=== PATIENT | female | born 1985 | race Caucasian/White ===

== ENCOUNTER → 2024-02-25 11:23 | Outpatient (REF) | payer OTHER, SELFPAY | LOC: HWRAD 11:23 | PROVIDERS: ATTENDING PHYSICIAN Family Medicine | DX: R10.11 Right upper quadrant pain (principal) | CPT/HCPCS: 76770 ==

== ENCOUNTER → 2024-02-27 09:24 | Outpatient (REF) | payer OTHER, SELFPAY | LOC: HWRAD 09:24 | PROVIDERS: ATTENDING PHYSICIAN Family Medicine | DX: R10.11 Right upper quadrant pain (principal) | CPT/HCPCS: 74176 ==

== ENCOUNTER 2024-04-12 00:08 | Emergency (ER) | payer OTHER, SELFPAY ==
[2024-04-12 00:09] VITALS: BP 120/70
[2024-04-12 01:30] LABS: Hematocrit 41.6 % (37.0-47.0); Mean Corp Hgb Conc. 33.7 g/dL (33.0-37.0); Mean Corpuscular Hgb 28.9 pg (27.0-31.0); Mean Corpuscular Volume 85.8 fL (81.0-99.0); Mean Platelet Volume 10.6 fL (7.4-10.4); Platelet Count 265 10^3/uL (130-400); Red Blood Cell Count 4.85 10^6/uL (4.20-5.40); Red Cell Dist. Width 11.7 % (11.5-14.5); White Blood Cell Count 14.2 10^3/uL (4.8-10.8)
[2024-04-12 02:57] VITALS: BMI 33.2
[2024-04-12 03:50] LABS: Absolute Neutrophils -Man Diff 7.9 10^3/uL (1.4-6.5); Atypical Lymphocytes 5 %; Band Neutrophils 3 % (0-3); Eosinophils 1 % (0-6); Lymphocytes 33 % (20-51); Monocytes 5 % (2-9); Normal RBC Morphology Yes; Platelets Checked Yes; Segmented Neutrophils 53 % (42-75); Total Cells Counted 100
--- NOTE | 2024-04-12 04:29 | ED.GENMED ---
History of Present Illness
General
Chief Complaint: Vaginal Bleeding
Time Seen by Provider: 04/12/24 04:29
History of Present Illness
History of Present Illness:
This a pleasant 38-year-old female presents to the emergency department with scant spotting. She found out she was last week. Her last menstrual period was beginning of February. She states that this evening she had pink discharge per
vagina. She states that it has diminished. She denies any abdominal pain. She does not have movement. This is her first .
Phy Exam
Physical Exam
Physical Exam:
Physical Exam
Vital signs and allergy list reviewed and agreed with.
GENERAL: Alert , in minimal to no apparent distress
EYE: pupils equal, EOMI, anicteric
NECK: Supple, no significant adenopathy. No masses. Trachea midline
ENT: Oropharynx is clear, mmm.
CARDIAC: Regular rate and rhythm . No M/R/G
LUNGS: Clear breath sounds bilaterally, no acute respiratory distress, no wheezes/rales/rhonchi
ABDOMEN: Soft, without focal tenderness, no r/g, no cvat. Normal BSx4q, nongravid appearing
NEUROLOGICAL: Alert and oriented, no focal neuro deficits
SKIN: Warm and dry, skin intact.
MUSCULOSKELETAL: No edema, well perfused. Moves all 4 extremities
PSYCH: Normal and appropriate interaction.
Course
Orders/Labs/Results
Orders:
Orders
04/12/24 00:21
Type+Screen Urgent
Beta HCG Quantitative Urgent
Is this a screen?: No
Comment: known
Complete Blood Count/With Diff Urgent
Manual Differential Urgent
04/12/24 01:16
US 1st Trimester Urgent
Comment:
Reason For Exam: 1st trimester bleeding
04/12/24 02:19
ABO2 Urgent
BBK Wristband Number:
Associate notified that ABO2 has been ordered: [id number]
Date: 04/12/24
Time: 00:39
Flight Crew Time Clerk ID: [id number]
Abnormal Lab Results
04/12/24
00:21
WBC 14.2 H 10^3/uL
(4.8-10.8)
MPV 10.6 H fL
(7.4-10.4)
Abs Neuts (Manual) 7.9 H 10^3/uL
(1.4-6.5)
04/12/24 00:21
Vital Signs
Initial and Last Documented VS:
Initial Vital Signs
Temp Pulse Resp BP Pulse Ox
98.3 F 83 16 120/70 98
04/12/24 00:09 04/12/24 00:09 04/12/24 00:09 04/12/24 00:09 04/12/24 00:09
Last Documented Vital Signs
Temp Pulse Resp BP Pulse Ox
98.3 F 73 18 106/64 99
04/12/24 00:09 04/12/24 04:32 04/12/24 04:32 04/12/24 04:32 04/12/24 04:32
*Critical Care Note
Total Time (30-74mins, 75-104mins- exclusive of procedures): Not Applicable
Update Note
Update Note:
Ultrasound pelvis
IMPRESSION:
Single intrauterine dating 6 weeks and 0 day. CRL measures 0.31 cm with detected heart flicker, however no definitive heart rate can be obtained, likely too small.
No subchorionic hemorrhage.
Mildly enlarged left ovary, volume 32 mL, containing simple appearing 3.9 x 2.7 x 3.4 cm cyst. Nonenlarged right ovary with few follicles. Normal ovarian vascular flow bilaterally.
Small amount of free fluid in the right adnexa and posterior pelvis.
Spoke with Charlotte Arellano,, DESIZING MACHINE OPERATOR. She does not recommend RhoGAM under 10 weeks. Her group will see the patient in the office at her previously scheduled appointment. Patient will have quant rechecked.
ED Attending Note
-
Portions of this chart may have been created with voice recognition software.� Occasional wrong word or��sound alike� substitutions may have occurred due to the inherent limitations of voice recognition software.
Discharge Plan
Departure
Patient Disposition: Home (Routine Discharge)
Date of Disposition: 04/12/24
Time of Disposition: 04:53
Patient with high blood pressure during this ER visit?: Yes
Condition: Good
Discharge Problem:
Miscarriage, threatened, early
Instructions: Threatened Miscarriage (DC)
Referrals:
Charlotte Arellano DO [Active] - Keep scheduled appt
Keyur Wyatt, [Family Provider] -
Activity Restrictions/Additional Instructions:
No RhoGAM necessary today.
Please follow-up with Dr. Arellano or one of her partners at your previously scheduled appointment this week
I have provided a prescription for a beta hCG quantitative lab study. Please try to get it completed before your follow-up appointment
It was a pleasure meeting you and taking part in your care. We hope for your continued healing and wellness.
Please read discharge instructions in their entirety. However, they are for general education and may not describe your exact diagnosis at discharge. Information on your ER visit and medical conditions were discussed with you along with appropriate
follow up information...
If indicated, please take your medications as instructed and indicated on discharge paperwork.
Please schedule a follow up appointment as directed. Call to schedule an appointment
Please return to the emergency department with ANY change in, persisting, or worsening of symptoms. If any of your symptoms do not improve, or persist, or become more severe within 6-12 hours, please return to the emergency department for further
care.
Please return to the emergency department if you develop a headache, neck pain/stiffness, fever greater than 100.4F, chest pain, shortness of breath, persistent nausea, vomiting, slurred speech, difficulty walking, numbness/tingling, weakness, signs
of infection or any other symptoms that are worrisome to you.
If you have any questions or concerns please do not hesitate to call the Hospital at or E-mail me directly at [email or web address]
Interventions
Interventions:
*Risk Screen - Suicide Last Done: 04/12/24 00:09
*General Assessment Last Done: 04/12/24 00:09
*Neglect/Abuse Screening Last Done: 04/12/24 00:09
*ED COVID-19 Vaccine History Last Done: 04/12/24 02:57
*Nursing Disposition Last Done: 04/12/24 04:59
ED-Female Genitourinary Assessment Last Done: 04/12/24 02:57
Discharge Date and Time
Discharge Date/Time: 04/12/24 04:59
Print Language: GEORGIAN
[2024-04-12 04:32] VITALS: BP 106/64
== END 2024-04-12 04:59 | disposition home or self-care (01) ==
LOC: EMR 00:08
PROVIDERS: EMERGENCY PHYSICIAN Student in an Organized Health Care Education/Training Program; FAMILY PHYSICIAN Family Medicine
DX: O20.0 Threatened abortion (principal); Z3A.01 Less than 8 weeks gestation of pregnancy
CPT/HCPCS: 99284; 76801; 84702; 85025; 86850; 86900; 86901

== ENCOUNTER → 2024-05-13 13:49 | Outpatient (REF) | payer OTHER, SELFPAY ==
--- NOTE | 2024-05-13 13:58 | PN.DIAED06 ---
Meal Plan - Gestational
- Breakfast
Gestational Diabetes Meal Plan Name: 1800 calories
Breakfast - Total Carbohydrate (grams): 30
Breakfast - Starch Carbohydrate: 1
Breakfast - Fruit Carbohydrate: 0
Breakfast - Milk Carbohydrate: 1
Breakfast - Nonstarchy Vegetables: Yes
Breakfast - Meat/Protein: 1
Breakfast - Fat: 2
- Morning Snack
Morning Snack - Total Carbohydrate (grams): 30
Morning Snack - Starch Carbohydrate: 1
Morning Snack - Fruit Carbohydrate: 0
Morning Snack - Milk Carbohydrate: 1
Morning Snack - Nonstarchy Vegetables: Yes
Morning Snack - Meat/Protein: 0.5
Morning Snack - Fat: 0
- Lunch
Lunch - Total Carbohydrate (grams): 45
Lunch - Starch Carbohydrate: 2
Lunch - Fruit Carbohydrate: 1
Lunch - Milk Carbohydrate: 0
Lunch - Nonstarchy Vegetables: Yes
Lunch - Meat/Protein: 2
Lunch - Fat: 1
- Afternoon Snack
Afternoon Snack - Total Carbohydrate (grams): 30
Afternoon Snack - Starch Carbohydrate: 1
Afternoon Snack - Fruit Carbohydrate: 1
Afternoon Snack - Milk Carbohydrate: 0
Afternoon Snack - Nonstarchy Vegetables: Yes
Afternoon Snack - Meat/Protein: 1
Afternoon Snack - Fat: 0
- Dinner
Dinner - Total Carbohydrate (grams): 45
Dinner - Starch Carbohydrate: 2
Dinner - Fruit Carbohydrate: 0
Dinner - Milk Carbohydrate: 1
Dinner - Nonstarchy Vegetables: Yes
Dinner - Meat/Protein: 2
Dinner - Fat: 2
- Evening Snack
Evening Snack - Total Carbohydrate (grams): 30
Evening Snack - Starch Carbohydrate: 1
Evening Snack - Fruit Carbohydrate: 0
Evening Snack - Milk Carbohydrate: 1
Evening Snack - Nonstarchy Vegetables: Yes
Evening Snack - Meat/Protein: 1
Evening Snack - Fat: 1
--- NOTE | 2024-05-14 08:08 | PN.DE ---
Diabetes Education
- -
05/14/2024: Gestational Diabetes Consult
Met with Ms. Britton yesterday (05/13/24),for medical nutrition therapy. Pt is currently at 10 weeks of gestation. Angle has a h/o PCOS and T2DM, She was taking Metformin but it was discontinued due to GI SE and was switched to Mounjaro, which has
also been discontinued since finding out that she is .
Explained glucose metabolism in body and what occurs during to cause increase blood sugar. Discussed importance of keeping BS well controlled to avoid complications to the baby during and after (macrosomia, hypoglycemia).
Angle reports that she has a glucose monitor at home- [employer] and has been testing her blood sugars, fasting and 2 hrs after each meal for 2 weeks now.
She is aware to test FBS and 2 hr pp each meal. Expected results for FBS <95 mg/dl and 2 hr pp <120 mg/dl. A Log sheet was provided for her to record results, she will send a 4-day meal log with all her FBG and 2hr Post prandial glucose numbers to
this office for review. In addition, she will send all her glucose readings to Niru at [facility] every Saturday.
Discussed macronutrients, provided with 1800 shakira GDM meal plan, reviewed and educated her on the food label . 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 States she had lost ~60lbs while taking Mounjaro but she has noticed
that she is starting to gain weight. Discussed physical activity, however, she is currently not exercising due to a busy work schedule. Discussed and emphasized the importance of staying active during and after her . She was encouraged to
reach out should she require insulin.
== END ==
LOC: DES 13:49
PROVIDERS: ATTENDING PHYSICIAN Student in an Organized Health Care Education/Training Program
DX: O24.419 Gestational diabetes mellitus in pregnancy, unspecified control (principal)
CPT/HCPCS: 99078

== ENCOUNTER → 2024-09-16 13:23 | Outpatient (REF) | payer OTHER, SELFPAY | LOC: PNTC 13:23 | PROVIDERS: ATTENDING PHYSICIAN Obstetrics & Gynecology | DX: Z34.90 Encounter for supervision of normal pregnancy, unspecified, unspecified trimester (principal) | CPT/HCPCS: 36415; 86850; 86900; 86901; 96372; J2790 ==

== ENCOUNTER → 2024-10-19 10:54 | Outpatient (REF) | payer OTHER, SELFPAY | LOC: PNTC 10:54 | PROVIDERS: ATTENDING PHYSICIAN Obstetrics & Gynecology | DX: O09.529 Supervision of elderly multigravida, unspecified trimester (principal) | CPT/HCPCS: 59025 ==

== ENCOUNTER → 2024-10-29 08:57 | Outpatient (REF) | payer OTHER, SELFPAY | LOC: PNTC 08:57 | PROVIDERS: ATTENDING PHYSICIAN Obstetrics & Gynecology | DX: O09.529 Supervision of elderly multigravida, unspecified trimester (principal) | CPT/HCPCS: 59025 ==

== ENCOUNTER → 2024-11-02 10:31 | Outpatient (REF) | payer OTHER, SELFPAY | LOC: PNTC 10:31 | PROVIDERS: ATTENDING PHYSICIAN Obstetrics & Gynecology | DX: O09.93 Supervision of high risk pregnancy, unspecified, third trimester (principal); E28.2 Polycystic ovarian syndrome | CPT/HCPCS: 59025 ==

== ENCOUNTER → 2024-11-05 15:23 | Outpatient (REF) | payer OTHER, SELFPAY | LOC: PNTC 15:23 | PROVIDERS: ATTENDING PHYSICIAN Student in an Organized Health Care Education/Training Program | DX: O09.529 Supervision of elderly multigravida, unspecified trimester (principal) | CPT/HCPCS: 59025 ==

== ENCOUNTER → 2024-11-09 09:30 | Outpatient (REF) | payer OTHER, SELFPAY | LOC: PNTC 09:30 | PROVIDERS: ATTENDING PHYSICIAN Obstetrics & Gynecology | DX: O09.529 Supervision of elderly multigravida, unspecified trimester (principal); E28.2 Polycystic ovarian syndrome | CPT/HCPCS: 59025 ==

== ENCOUNTER → 2024-11-12 14:59 | Outpatient (REF) | payer OTHER, SELFPAY | LOC: PNTC 14:59 | PROVIDERS: ATTENDING PHYSICIAN Obstetrics & Gynecology | DX: O09.529 Supervision of elderly multigravida, unspecified trimester (principal) | CPT/HCPCS: 59025 ==

== ENCOUNTER → 2024-11-16 09:35 | Outpatient (REF) | payer OTHER, SELFPAY | LOC: PNTC 09:35 | PROVIDERS: ATTENDING PHYSICIAN Obstetrics & Gynecology | DX: O09.529 Supervision of elderly multigravida, unspecified trimester (principal) | CPT/HCPCS: 59025 ==

== ENCOUNTER → 2024-11-19 11:57 | Outpatient (REF) | payer OTHER, SELFPAY | LOC: PNTC 11:57 | PROVIDERS: ATTENDING PHYSICIAN Student in an Organized Health Care Education/Training Program | DX: O09.529 Supervision of elderly multigravida, unspecified trimester (principal); O34.80 Maternal care for other abnormalities of pelvic organs, unspecified trimester | CPT/HCPCS: 59025 ==

== ENCOUNTER → 2024-11-23 09:31 | Outpatient (REF) | payer OTHER, SELFPAY | LOC: PNTC 09:31 | PROVIDERS: ATTENDING PHYSICIAN Student in an Organized Health Care Education/Training Program | DX: O09.529 Supervision of elderly multigravida, unspecified trimester (principal) | CPT/HCPCS: 59025 ==

== ENCOUNTER → 2024-11-26 14:20 | Outpatient (REF) | payer OTHER, SELFPAY | LOC: PNTC 14:20 | PROVIDERS: ATTENDING PHYSICIAN Obstetrics & Gynecology | DX: O09.529 Supervision of elderly multigravida, unspecified trimester (principal) | CPT/HCPCS: 59025 ==

== ENCOUNTER → 2024-11-30 09:33 | Outpatient (REF) | payer OTHER, SELFPAY | LOC: PNTC 09:33 | PROVIDERS: ATTENDING PHYSICIAN Student in an Organized Health Care Education/Training Program | DX: O09.529 Supervision of elderly multigravida, unspecified trimester (principal); E28.2 Polycystic ovarian syndrome | CPT/HCPCS: 59025 ==

== ENCOUNTER 2024-11-30 19:36 | Inpatient (IN) | payer OTHER, SELFPAY ==
[2024-11-30 20:53] VITALS: BMI 40.4
[2024-11-30 21:12] VITALS: BP 145/82
[2024-11-30 21:25] LABS: Hematocrit 35.1 % (37.0-47.0); Hemoglobin 11.8 g/dL (12.0-16.0); Mean Corp Hgb Conc. 33.6 g/dL (33.0-37.0); Mean Corpuscular Volume 84.6 fL (81.0-99.0); Nucleated Red Blood Cells % 0 %; Platelet Count 231 10^3/uL (130-400); Red Cell Dist. Width 13.6 % (11.5-14.5)
[2024-11-30] MEDS: CYTOTEC 25 MICROGRAM VAG (21:25)
[2024-11-30 21:30] LABS: ALT (SGPT) 20 U/L (0-35); AST (SGOT) 25 U/L (14-36); Albumin 3.3 g/dl (3.5-5.0); Alkaline Phosphatase 124 U/L (38-126); Blood Urea Nitrogen 10 mg/dl (7-17); Calcium 9.4 mg/dl (8.4-10.2); Carbon Dioxide 20 mmol/L (22-30); Chloride 109 mmol/L (98-107); Estimated Creatinine Clearance > 125 ml/min; Glucose 107 mg/dl (70-99); Potassium 3.6 mmol/L (3.5-5.1); Sodium 134 mmol/L (135-145); Total Protein 6.4 g/dl (6.3-8.2); eGFR > 60.00
[2024-11-30] MEDS: LR 1000 IV (22:48)
[2024-11-30] MEDS: MAGNESIUM SULFATE 100 IV (22:48)
[2024-11-30] MEDS: LANTUS 0.7 UNITS SC (22:54)
[2024-11-30] MEDS: MAGNESIUM SULFATE 40 GRAM 1000 IV (23:08)
[2024-12-01 01:08] LABS: Glucose - Point of Care 56 mg/dl (70-99)
[2024-12-01 01:11] LABS: Glucose - Point of Care 58 mg/dl (70-99)
[2024-12-01 01:39] LABS: Glucose - Point of Care 64 mg/dl (70-99)
[2024-12-01] MEDS: PITOCIN 30 UNITS/NSS 500 ML IV (01:57)
[2024-12-01 02:03] LABS: Glucose - Point of Care 68 mg/dl (70-99)
[2024-12-01 04:07] LABS: Glucose - Point of Care 72 mg/dl (70-99)
[2024-12-01 06:12] LABS: Glucose - Point of Care 77 mg/dl (70-99)
[2024-12-01 08:09] LABS: Glucose - Point of Care 76 mg/dl (70-99)
[2024-12-01] MEDS: TRANDATE 200 MG PO (09:43)
[2024-12-01] MEDS: TRANDATE 20 MG IV (09:44)
[2024-12-01 10:10] LABS: Glucose - Point of Care 86 mg/dl (70-99)
--- NOTE | 2024-12-01 11:17 | PN.DE.MGMTRT ---
Insulin Management
- -
12/01/2024 Diabetes Management Consult
Patient admitted 11/30 evening for induction. PMH PCOS @ age 21, . Prior to admission was taking lantus 140 units @ HS and novolog 20 units with breakfast, 38 units with lunch and 60 units with dinner. cr .6, eGFR > 60.
Patient is awake and alert, able to discuss diabetes care. at bedside very supportive. Patient states she was taking Mounjaro for the past 4 years sees her primary doctor, Dr. Keyur Woodard for whom she also works. States her A1C always
runs around 6%. She had been told she 'could not get , but did. At that time the Mounjaro was stopped. She quickly required insulin and doses have been increased based on glucose results. Prior to coming to hospital last evening she had
a full dinner and took 60 units of novolog. She received 70 units of lantus at HS. Glucose at 1:06 was 56, she was treated and glucose eventually was up to 72 at 4:05am.
Patient currently ordered clear liquids, being induced, in early labor, has not required any insulin. Dr. Rosales has ordered insulin infusion to start if glucose is 121 or greater. Will HOLD all subcutaneous insulin.
Discussed with nurse.
Will follow.
Diabetes History
- -
Type of Diabetes: 2
Pre-Admission Diabetes Regimen
11/30/24
21:07
Creatinine 0.6
Insulin Pump Settings
IP Diabetes Regimen
11/30/24 12/01/24 12/01/24
21:07 01:06 01:09
Glucose 107 H
POC Glucose 56 L 58 L
12/01/24 12/01/24 12/01/24
01:37 02:02 04:05
Glucose
POC Glucose 64 L 68 L 72
12/01/24 12/01/24 12/01/24
06:10 08:07 10:09
Glucose
POC Glucose 77 76 86
Patient Education
[2024-12-01 12:01] LABS: Glucose - Point of Care 78 mg/dl (70-99)
[2024-12-01 14:02] LABS: Glucose - Point of Care 73 mg/dl (70-99)
[2024-12-01 16:08] LABS: Glucose - Point of Care 72 mg/dl (70-99)
[2024-12-01 18:07] LABS: Glucose - Point of Care 83 mg/dl (70-99)
[2024-12-01] MEDS: MAGNESIUM SULFATE 40 GRAM 1000 IV (18:42)
[2024-12-01] MEDS: FENTANYL/BUPIVACAINE 100 EPIDURAL (19:42)
[2024-12-01] MEDS: SUBLIMAZE 100 MCG EPIDURAL (19:42)
[2024-12-01] MEDS: TRANDATE PO (20:00)
[2024-12-01 20:13] LABS: Glucose - Point of Care 103 mg/dl (70-99)
[2024-12-01 22:20] LABS: Glucose - Point of Care 101 mg/dl (70-99)
[2024-12-02] MEDS: TYLENOL 975 MG PO (00:09)
[2024-12-02] MEDS: BICITRA 30 ML PO (00:10)
[2024-12-02] MEDS: ANCEF 15 MG IV (00:19)
[2024-12-02] MEDS: ZITHROMAX INFUSION 250 IV (00:34)
[2024-12-02] MEDS: TRANEXAMIC ACID 100 IV (00:37)
[2024-12-02] MEDS: LR 1000 IV (02:05)
[2024-12-02] MEDS: PITOCIN 30 UNITS/NSS 500 ML IV (02:05)
[2024-12-02 02:34] LABS: Glucose - Point of Care 170 mg/dl (70-99)
[2024-12-02] MEDS: NOVOLOG FLEXPEN-HIGH RESISTANCE 2 UNITS SC ×2 (03:40→08:06)
[2024-12-02 03:46] LABS: Glucose - Point of Care 179 mg/dl (70-99)
[2024-12-02] MEDS: TORADOL 15 MG IV ×4 (04:03→22:08)
[2024-12-02] MEDS: TRANDATE 200 MG PO ×2 (07:55→20:02)
[2024-12-02] MEDS: PRENATAL PLUS 1 TABLET PO (07:55)
[2024-12-02] MEDS: COLACE 100 MG PO ×2 (07:56→20:02)
[2024-12-02 08:05] LABS: Glucose - Point of Care 180 mg/dl (70-99)
[2024-12-02 11:53] LABS: Glucose - Point of Care 179 mg/dl (70-99)
[2024-12-02] MEDS: NOVOLOG FLEXPEN 3 UNITS SC (12:15)
[2024-12-02] MEDS: NOVOLOG FLEXPEN-MODERATE RESISTANCE SC (12:39)
--- NOTE | 2024-12-02 12:53 | PN.DE.MGMTRT ---
Insulin Management
- -
12/02/2024 Diabetes Management Consult Follow up
Patient admitted 11/30 evening for induction. PMH PCOS @ age 21, . Prior to admission was taking lantus 140 units @ HS and novolog 20 units with breakfast, 38 units with lunch and 60 units with dinner. cr .6, eGFR > 60.
Patient is awake and alert, able to discuss diabetes care. at bedside very supportive.
POD 1 s/p - male, mother and baby doing well.
Diet has been advanced. Fasting glucose this AM 180, received 2 units corrective insulin. Pre lunch glucose 179. Will start ac novolog 3 units and reduce corrective from high to moderate. Will consider low dose lantus at HS if fasting glucose
continues elevated in AM. Discussed with patient the possible need for insulin temporarily, she is in agreement. Her plan is to bottle feed and resume Mounjaro as soon as she follows up with primary provider (where she works).
Discussed with nurse.
Will follow.
Diabetes History
- -
Type of Diabetes: 2 requiring insulin
Pre-Admission Diabetes Regimen
Insulin Pump Settings
IP Diabetes Regimen
12/01/24 12/01/24 12/01/24
14:01 16:03 18:02
POC Glucose 73 72 83
12/01/24 12/01/24 12/02/24
20:11 22:08 02:33
POC Glucose 103 H 101 H 170 H
12/02/24 12/02/24 12/02/24
03:38 07:58 11:51
POC Glucose 179 H 180 H 179 H
Patient Education
[2024-12-02] MEDS: MAGNESIUM SULFATE 40 GRAM 1000 IV (15:16)
[2024-12-02 16:48] LABS: Glucose - Point of Care 137 mg/dl (70-99)
[2024-12-03 06:49] LABS: Hematocrit 26.3 % (37.0-47.0); Hemoglobin 8.6 g/dL (12.0-16.0); Mean Corp Hgb Conc. 32.7 g/dL (33.0-37.0); Mean Corpuscular Volume 85.4 fL (81.0-99.0); Platelet Count 196 10^3/uL (130-400); Red Cell Dist. Width 14.6 % (11.5-14.5)
--- NOTE | 2024-12-03 07:54 | W.PN.ANS.POP ---
Anesthesia Post Operative
- Anesthesia Post Op Note
Vital Signs Stable-See Nursing Note: Yes
Airway Patent: Yes
Adequate Pain Control: Yes
Change in Mental Status: No
Current Postoperative Nausea & Vomiting: No
Anesthesia Complications: No
General Anesthetic Recall: No
Unplanned Admission: No
Post Op Hydration Adequate: Yes
- -
Pt awake, alertdddd. OOB to chair with no anesthesia related c/o at time of post op visit.
[2024-12-03 07:56] LABS: Glucose - Point of Care 119 mg/dl (70-99)
[2024-12-03] MEDS: NOVOLOG FLEXPEN-MODERATE RESISTANCE SC ×2 (08:25→17:38)
[2024-12-03] MEDS: COLACE 100 MG PO (08:26)
[2024-12-03] MEDS: PRENATAL PLUS 1 TABLET PO (08:26)
[2024-12-03] MEDS: TRANDATE 200 MG PO ×2 (08:26→20:16)
[2024-12-03] MEDS: MOTRIN 600 MG PO ×3 (08:35→23:57)
[2024-12-03] MEDS: TYLENOL 650 MG PO ×3 (08:36→23:57)
[2024-12-03 11:39] LABS: Glucose - Point of Care 211 mg/dl (70-99)
[2024-12-03] MEDS: NOVOLOG FLEXPEN-MODERATE RESISTANCE 3 UNITS SC (11:41)
[2024-12-03 17:13] LABS: Glucose - Point of Care 105 mg/dl (70-99)
[2024-12-03] MEDS: RHOGAM 300 MCG IM (18:13)
[2024-12-03] MEDS: COLACE PO (20:23)
[2024-12-03 20:33] LABS: Glucose - Point of Care 184 mg/dl (70-99)
[2024-12-03 22:04] LABS: Glucose - Point of Care 157 mg/dl (70-99)
[2024-12-03] MEDS: NOVOLOG FLEXPEN 1 UNITS SC (22:06)
[2024-12-04 07:01] LABS: Glucose - Point of Care 96 mg/dl (70-99)
[2024-12-04] MEDS: NOVOLOG FLEXPEN-MODERATE RESISTANCE SC (08:35)
[2024-12-04] MEDS: TRANDATE 200 MG PO (08:36)
[2024-12-04] MEDS: COLACE 100 MG PO (08:36)
[2024-12-04] MEDS: MOTRIN 600 MG PO (08:36)
[2024-12-04] MEDS: PRENATAL PLUS PO (08:37)
--- NOTE | 2024-12-04 09:17 | PN.DE.MGMTRT ---
Insulin Management
- -
12/04/2024 Diabetes Management Follow up
Patient admitted 11/30 evening for induction. PMH PCOS @ age 21, . Prior to admission was taking Lantus 140 units @ HS and NovoLog 20 units with breakfast, 38 units with lunch and 60 units with dinner. cr .6, eGFR > 60.
Patient is awake and alert, able to discuss diabetes care. at bedside very supportive.
POD # 3 s/p - male, mother and baby doing well.
Currently on reg diet. 12/03 Pre-lunch glucose 211, received 3 units corrective insulin. Glucose down to 105 pre-dinner. HS glucose was 157, received 1 unit of corrective insulin. FBG this AM 96. Will make no changes to current regimen.
Will consider adding AC NovoLog and HS Lantus if glucose continues to trend up in AM.
Discussed with patient the possible need for insulin temporarily, she is in agreement. Her plan is to bottle feed and resume Mounjaro as soon as she follows up with primary provider (where she works).
Discussed with nurse. Will cont to follow.
Diabetes History
- -
Type of Diabetes: 2 requiring insulin
Pre-Admission Diabetes Regimen
Insulin Pump Settings
IP Diabetes Regimen
12/03/24 12/03/24 12/03/24
11:35 17:07 20:32
POC Glucose 211 H 105 H 184 H
12/03/24 12/04/24
22:03 07:00
POC Glucose 157 H 96
Patient Education
[2024-12-04 13:41] LABS: Syphilis/T. pallidum Ab Reflex Negative (Negative)
== END 2024-12-04 11:42 | disposition home or self-care (01) | DRG 788 ==
LOC: LDRP 19:36
PROVIDERS: Obstetrics & Gynecology; ADMITTING PHYSICIAN Obstetrics & Gynecology; FAMILY PHYSICIAN Family Medicine
PROC: 3E0P7VZ Introduction of Hormone into Female Reproductive, Via Natural or Artificial Opening (ICD-10-PCS; 2024-11-30)
PROC: 3E033VJ Introduction of Other Hormone into Peripheral Vein, Percutaneous Approach (ICD-10-PCS; 2024-12-01)
PROC: 0U7C7DJ Dilation of Cervix with Intraluminal Device, Temporary, Via Natural or Artificial Opening (ICD-10-PCS; 2024-12-01)
PROC: 10907ZC Drainage of Amniotic Fluid, Therapeutic from Products of Conception, Via Natural or Artificial Opening (ICD-10-PCS; 2024-12-01)
PROC: 10D00Z1 Extraction of Products of Conception, Low, Open Approach (ICD-10-PCS; 2024-12-02)
PROC: 3E0334Z Introduction of Serum, Toxoid and Vaccine into Peripheral Vein, Percutaneous Approach (ICD-10-PCS; 2024-12-03)
DX: O14.14 Severe pre-eclampsia complicating childbirth (principal); O99.214 Obesity complicating childbirth; O76 Abnormality in fetal heart rate and rhythm complicating labor and delivery; O24.12 Pre-existing type 2 diabetes mellitus, in childbirth; Z3A.39 39 weeks gestation of pregnancy; Z37.0 Single live birth; O26.893 Other specified pregnancy related conditions, third trimester; Z67.11 Type A blood, Rh negative
CPT/HCPCS: 80053; 82570; 82962; 84156; 85025; 85027; 85461; 86780; 86850; 86900; 86901; 88307; J2790

== ENCOUNTER → 2024-12-14 12:27 | Outpatient (REF) | payer OTHER, SELFPAY ==
[2024-12-14 13:11] LABS: Hematocrit 37.9 % (37.0-47.0); Hemoglobin 11.8 g/dL (12.0-16.0); Mean Corp Hgb Conc. 31.1 g/dL (33.0-37.0); Mean Corpuscular Volume 86.5 fL (81.0-99.0); Nucleated Red Blood Cells % 0 %; Platelet Count 393 10^3/uL (130-400); Red Cell Dist. Width 13.2 % (11.5-14.5)
[2024-12-14 13:52] LABS: ALT (SGPT) 44 U/L (0-35); AST (SGOT) 28 U/L (14-36); Albumin 4.2 g/dl (3.5-5.0); Alkaline Phosphatase 92 U/L (38-126); Blood Urea Nitrogen 15 mg/dl (7-17); Calcium 9.5 mg/dl (8.4-10.2); Carbon Dioxide 29 mmol/L (22-30); Chloride 102 mmol/L (98-107); Glucose 66 mg/dl (70-99); Potassium 4.3 mmol/L (3.5-5.1); Sodium 137 mmol/L (135-145); Total Protein 7.5 g/dl (6.3-8.2); eGFR > 60.00
[2024-12-14 14:06] LABS: TSH 1.56 uIU/ml (0.47-4.68)
== END ==
LOC: REG 12:27
PROVIDERS: ATTENDING PHYSICIAN Family Medicine
DX: R60.0 Localized edema (principal)
CPT/HCPCS: 36415; 80053; 83880; 84443; 85025